=== PATIENT | female | born 1970 | race Caucasian/White ===

== ENCOUNTER 2021-02-25 16:39 | Outpatient (CLI) | payer OTHER, SELFPAY ==
[2021-02-25 17:41] LABS: Absolute Lymphocyte Count 1.81 X10^3/uL (0.83-4.51); Absolute Neutrophil Count 4.6 X10^3/uL (2.0-7.7); Basophil# 0.04 X10^3/uL; Basophil% 0.6 % (0-1); Eosinophil# 0.05 X10^3/uL; Eosinophils% 0.7 % (0-5); Hematocrit 39.9 % (37-47); Lymphocyte # 1.81 X10^3/ul (0.83-4.51); Lymphocyte % 25.6 % (19-41); Mean Corp Hgb Conc 32.6 g/dL (32-36); Mean Corpuscular Hgb 31.2 pg (27.0-32.0); Mean Corpuscular Volume 95.7 fL (81-99); Mean Platelet Vol. 10.3 fl (6.2-12.0); Monocyte# 0.58 X10^3/uL; Monocyte% 8.2 % (0-10); NRBC Flagged by Analyzer 0 % (0-5); Neutrophil # 4.57 X10^3/uL (2.7-7.7); Neutrophil % 64.6 % (47-70); Platelet Count 291 K/mm3 (150-450); RBC Distribution Width CV 14.7 % (11.6-14.6); Red Blood Count 4.17 M/mm3 (4.2-5.4); White Blood Count 7.1 K/mm3 (4.4-11.0)
[2021-02-25 18:15] LABS: ALB/GLOB Ratio 0.8 RATIO (0.9-2.4); AST(SGOT) 20 U/L (15-37); Alanine Aminotransfer ALT/SGPT 19 U/L (13-56); Albumin, Serum 3.2 g/dL (3.2-5.0); Alkaline Phosphatase 73 U/L (45-117); Anion Gap 7 (5-15); BUN 16 mg/dL (7-18); BUN/Creat Ratio 25.7 RATIO (10-20); Chloride 105 mmol/L (98-107); Cholesterol 191 mg/dL (200); Creatinine, Serum 0.62 mg/dL (0.55-1.02); EST Glomerular Filtration Rate 109 mL/min (>60); Est Glom Filt Rate - Afr Amer 131 mL/min (>60); Globulin 3.8 g/dL (2.2-4.2); Glucose 95 mg/dL (74-106); High Density Lipoprotein 103 mg/dL; Magnesium 2.2 mg/dL (1.6-2.6); Phosphorus 2.7 mg/dL (2.5-4.9); Potassium 3.2 mmol/L (3.5-5.1); Sodium Level 140 mmol/L (136-145); Triglycerides 61 mg/dL; Very Low Density Lipoprotein 12 mg/dL (5-40)
[2021-02-25 18:17] LABS: Microalbumin,Random Urine < 5.0 mg/L (NO RANGE EST.)
[2021-02-25 18:23] LABS: Vitamin B12 822 pg/mL (211-911); Vitamin D,25 Hydroxy 29.6 ng/mL
[2021-03-01 17:09] LABS: Vitamin B1, Thiamine 170.3 nmol/L (66.5-200.0)
== END 2021-02-25 23:59 | disposition short-term general hospital (02) ==
LOC: MFPLAB 16:42
PROVIDERS: PCP Family Medicine; Referring Provider Family Medicine; Visit Provider Family Medicine
DX: I10 Essential (primary) hypertension (principal); Z98.84 Bariatric surgery status
CPT/HCPCS: 36415; 80053; 80061; 82043; 82306; 82570; 82607; 83735; 84100; 84425; 85025

== ENCOUNTER 2021-04-21 07:02 | Outpatient (CLI) | payer OTHER, SELFPAY ==
--- NOTE | 2021-04-21 16:22 | BI_ITS ---
MAMMOGRAPHY - BILATERAL SCREENING REASON FOR EXAM: Female, 50 years old. Routine annual screening examination. PERTINENT HISTORY: Non-contributory. Bilateral breast implants. TECHNIQUE: Digital bilateral breast adriel (3D mammographic acquisition) in the CC and MLO projections. 2-D mediolateral oblique (MLO) and craniocaudad (CC) views of both breasts were obtained. CAD: Full Field Digital Mammography with Computer Added Detection was performed. COMPARISON: Comparison is made with prior outside examination dated 05/30/2013. FINDINGS: Breast Composition: The breasts are almost entirely fatty. There are no dominant masses or suspicious calcifications. Irregular contour of the anterior aspect of the right breast implant. This is unchanged as compared to prior study. No other significant abnormalities are identified. There has been no significant change since the prior study. BI/SCRN MAMM (CAD)W/ADRIEL BILAT IMPRESSION: Stable bilateral screening mammogram. Yearly follow-up mammogram recommended. (A) ASSESSMENT CATEGORY: BIRADS Category 2: Benign. A letter regarding these results will be sent to the patient by the facility within 30 days. Approximately 10% of breast cancers are not detected by mammography. A normal mammogram should not delay biopsy of a clinically suspicious abnormality. [id number] Electronically Signed: Haseeb Gallego MD at 9:03 EST ,
== END 2021-04-21 23:59 | disposition home or self-care (01) ==
LOC: OPBI 04-22 07:10
PROVIDERS: PCP Family Medicine; Visit Provider Family Medicine
DX: Z12.31 Encounter for screening mammogram for malignant neoplasm of breast (principal)
CPT/HCPCS: 77063; 77067

== ENCOUNTER → 2022-09-11 | Outpatient (CLI) | payer OTHER, SELFPAY ==
[2022-09-11 17:48] LABS: Absolute Lymphocyte Count 1.21 X10^3/uL (0.83-4.51); Absolute Neutrophil Count 3.1 X10^3/uL (2.0-7.7); Basophil# 0.04 X10^3/uL; Basophil% 0.8 % (0-1); Eosinophil# 0.07 X10^3/uL; Eosinophils% 1.4 % (0-5); Hematocrit 45.4 % (37-47); Hemoglobin 15.3 g/dL (12.0-15.0); Lymphocyte # 1.21 X10^3/ul (0.83-4.51); Lymphocyte % 24.8 % (19-41); Mean Corp Hgb Conc 33.7 g/dL (32-36); Mean Corpuscular Hgb 35.7 pg (27.0-32.0); Mean Corpuscular Volume 106.1 fL (81-99); Mean Platelet Vol. 10.4 fl (6.2-12.0); Monocyte# 0.47 X10^3/uL; Monocyte% 9.6 % (0-10); NRBC Flagged by Analyzer 0 % (0-5); Neutrophil # 3.07 X10^3/uL (2.7-7.7); Platelet Count 194 K/mm3 (150-450); RBC Distribution Width CV 13.1 % (11.6-14.6); RBC Distribution Width SD 50.9 fl (35.1-43.9); Red Blood Count 4.28 M/mm3 (4.2-5.4); White Blood Count 4.9 K/mm3 (4.4-11.0)
[2022-09-11 18:19] LABS: Vitamin B12 680 pg/mL (211-911); Vitamin D,25 Hydroxy 39.5 ng/mL
[2022-09-11 18:34] LABS: ALB/GLOB Ratio 0.8 RATIO (0.9-2.4); AST(SGOT) 59 U/L (15-37); Alanine Aminotransfer ALT/SGPT 54 U/L (13-56); Albumin, Serum 3.4 g/dL (3.2-5.0); Alkaline Phosphatase 98 U/L (45-117); Anion Gap 7 (5-15); BUN 16 mg/dL (7-18); BUN/Creat Ratio 20.1 RATIO (10-20); Calcium,Total 9.5 mg/dL (8.5-10.1); Chloride 102 mmol/L (98-107); Cholesterol 243 mg/dL (200); EST Glomerular Filtration Rate 81 mL/min (>60); Est Glom Filt Rate - Afr Amer 98 mL/min (>60); Globulin 4.2 g/dL (2.2-4.2); Glucose 98 mg/dL (74-106); High Density Lipoprotein 144 mg/dL; Magnesium 2.1 mg/dL (1.6-2.6); Phosphorus 3.5 mg/dL (2.5-4.9); Potassium 3.3 mmol/L (3.5-5.1); Protein, Total 7.6 g/dL (6.4-8.2); Sodium Level 136 mmol/L (136-145); Triglycerides 117 mg/dL; Very Low Density Lipoprotein 23 mg/dL (5-40)
[2022-09-14 20:08] LABS: Vitamin B1, Thiamine 169.8 nmol/L (66.5-200.0)
== END | disposition home or self-care (01) ==
LOC: MFPLAB 16:19
PROVIDERS: PCP Family Medicine; Visit Provider Family Medicine
DX: Z98.84 Bariatric surgery status (principal); I10 Essential (primary) hypertension
CPT/HCPCS: 36415; 80053; 80061; 82306; 82607; 83735; 84100; 84425; 85025

== ENCOUNTER → 2023-02-09 | Outpatient (CLI) | payer OTHER, SELFPAY ==
--- NOTE | 2023-02-09 15:17 | BI_ITS ---
MAMMOGRAPHY - BILATERAL SCREENING 3-D TOMOSYNTHESIS REASON FOR EXAM: Female, 52 years old. Implants PERTINENT HISTORY: No significant family history. TECHNIQUE: 2-D mammograms and 3-D Tomosynthesis of the breast (s) were performed. Implant displaced views also performed. CAD was performed. COMPARISON: 04/21/2021 FINDINGS: The breast composition is almost entirely fat. Scattered benign calcifications are seen. No dense spiculated masses or suspicious microcalcifications are identified. No architectural distortion is identified. There is no skin thickening or retraction. Irregular contour of the right breast implant again noted. Stable appearance of implants otherwise There has been no significant change since the prior study. 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 Routine yearly mammograms recommended. ASSESSMENT CATEGORY: BIRADS Category 1: Negative. A letter regarding these results will be sent to the patient by the facility within 30 days. FOLLOW UP RECOMMENDATION: Yearly follow up mammogram recommended. (A) Approximately 10% of breast cancers are not detected by mammography. A normal mammogram should not delay biopsy of a clinically suspicious abnormality. Electronically Signed: Cuong Armando MD at 17:14 EST ,
== END | disposition home or self-care (01) ==
LOC: OPBI 15:16
PROVIDERS: PCP Family Medicine; Referring Provider Family Medicine; Visit Provider Family Medicine
DX: Z12.31 Encounter for screening mammogram for malignant neoplasm of breast (principal)
CPT/HCPCS: 77063; 77067

== ENCOUNTER → 2023-08-29 | Outpatient (CLI) | payer OTHER, SELFPAY ==
[2023-08-29 15:17] LABS: Absolute Lymphocyte Count 1.03 X10^3/uL (0.83-4.51); Absolute Neutrophil Count 2.5 X10^3/uL (2.0-7.7); Basophil# 0.05 X10^3/uL; Basophil% 1.2 % (0-1); Eosinophil# 0.01 X10^3/uL; Eosinophils% 0.2 % (0-5); Hemoglobin 13.3 g/dL (12.0-15.0); Lymphocyte # 1.03 X10^3/ul (0.83-4.51); Lymphocyte % 25.3 % (19-41); Mean Corp Hgb Conc 34.1 g/dL (32-36); Mean Corpuscular Volume 102.6 fL (81-99); Mean Platelet Vol. 9.5 fl (6.2-12.0); Monocyte# 0.47 X10^3/uL; Monocyte% 11.5 % (0-10); NRBC Flagged by Analyzer 0 % (0-5); Neutrophil % 61.6 % (47-70); Platelet Count 222 K/mm3 (150-450); RBC Distribution Width CV 13.4 % (11.6-14.6); RBC Distribution Width SD 50.7 fl (35.1-43.9); White Blood Count 4.1 K/mm3 (4.4-11.0)
[2023-08-29 15:34] LABS: Protein, Urine (Random) 39.7 mg/dL (<11.9); Protein:Creat Ratio 191 mg/g CRE (0-200)
[2023-08-29 15:46] LABS: Vitamin B12 438 pg/mL (211-911); Vitamin D,25 Hydroxy 35.9 ng/mL
[2023-08-29 16:19] LABS: AST(SGOT) 94 U/L (15-37); Alanine Aminotransfer ALT/SGPT 48 U/L (13-56); Albumin, Serum 3.8 g/dL (3.2-5.0); Alkaline Phosphatase 93 U/L (45-117); Anion Gap 11 (5-15); BUN 11 mg/dL (7-18); BUN/Creat Ratio 10.5 RATIO (10-20); Calcium,Total 9.8 mg/dL (8.5-10.1); Chloride 96 mmol/L (98-107); Cholesterol 282 mg/dL (200); Creatinine, Serum 1.05 mg/dL (0.55-1.02); EST Glomerular Filtration Rate 59 mL/min (>60); Est Glom Filt Rate - Afr Amer 71 mL/min (>60); Glucose 96 mg/dL (74-106); High Density Lipoprotein 200 mg/dL; Magnesium 1.9 mg/dL (1.6-2.6); Phosphorus 2.4 mg/dL (2.5-4.9); Potassium 3.1 mmol/L (3.5-5.1); Protein, Total 7.8 g/dL (6.4-8.2); Sodium Level 136 mmol/L (136-145); Triglycerides 127 mg/dL; Very Low Density Lipoprotein 25 mg/dL (5-40)
[2023-09-03 03:06] LABS: Vitamin B1, Thiamine 103.5 nmol/L (66.5-200.0)
== END | disposition home or self-care (01) ==
PROVIDERS: PCP Family Medicine
DX: Z98.84 Bariatric surgery status (principal); I10 Essential (primary) hypertension; F17.210 Nicotine dependence, cigarettes, uncomplicated
CPT/HCPCS: 36415; 80053; 80061; 82306; 82570; 82607; 83735; 84100; 84156; 84425; 85025

== ENCOUNTER 2023-11-20 16:03 | Outpatient (RCR) | payer OTHER, SELFPAY ==
--- NOTE | 2023-11-20 17:05 | HP.PTEVAL_ITS ---
Patient's Visit Information Visit Information Visit Information: JIL AUSTIN is a 53 year old F referred to Physical Therapy by JOSE ELIAS Wallace with a diagnosis of Muscle strain. Date of Evaluation: 11/20/23 Physical Therapist: Kemar Pham, DPT, OCS, CSCS Visit Plan Plan: Shown L thoracic rotation as HEP 15x 4x/day, also offered POC for aquatic therapy for back ROM, strength adn balance but pt wishes to to on her own as member and does not wish for instruction. Will join and do it herself. Subjective Subjective: L foot surgery in mid August. Also runs low on iron and was not moving around much due to that and boot on L foot. Was dizzy and passing out and now iron has taken care of all of that. Pulled a muscle in mid back in one of her falls with iron low and now radiates L thoracic area. That was approx 6 weeks ago. it is improving. Pain is L thoracic and to the lateral rib cage. Went to family doctor and diagnosed with pulled muscle L side. Fell due to meds so did not take. Continued pain for 2 weeks and went to oro doctor who did x rays and nothing broken. Gave a course of steroids which helped it to ease up. Now feels more stiff than anything. pain this week 2/10 and used to be a 10/10. Very tired with multiple errands today. Sleep is OK now steroid helped 92% Basic ADLs: all i Retired. Hobbies: 2 dogs to play and has been doing that . Pain mid back: Pain Intensity (Out of 10): 0 Pain Intensity Range: 0 and 2 Comment: used to be a 10 Objective Objective: WBAT in boot L LE from surgery. Walking I in boot without other gait deviations. Trasnfers bed and chair I, steps showing weakness in hips ascending and descending and requires rail but I. LB AROM ex abd flexion full and painfree. SB L and R no pain, rotation L hurts slight L scap and R is no painful. No tenderness in paraspinals or scap mm. reflexes 2/3 B Patella Sensation LE WNL to gross light touch. strength hips abd and ext 3+ and flexion 3+ with contralateral rotation. Instabi lity in trunk with hip testing. knees 4/5 B ext and flexion. R ankle 4+/5 Mild SOBafter ambualtion of 400 feet and 5 stairs. Balance/Special Test Scores Functional Gait Assessment Score: 29 % Disability: 3.3400 Lower Extremity Functional Score: 40 Rehabilitation Potential Physical Therapy Diagnosis: L scap pain and weakness in trunk limiting comfortable funciton Rehabilitation Potential: Fair Anticipated Interventions Text: Thank you for the opportunity to evaluate your patient. For Medicare and Medicare HMO plans, please review the plan of care and approve it. It will need to be FAXED BACK to us at [phone] for Medicare purposes. For Medicare only, by signing this I certify the plan of care. Please let me know if there are questions or concerns regarding this plan of care. Physician Signature: Date:
== END 2023-11-20 19:00 | disposition home or self-care (01) ==
LOC: PT 16:03
PROVIDERS: PCP Family Medicine; Referring Provider Student in an Organized Health Care Education/Training Program; Visit Provider Student in an Organized Health Care Education/Training Program
DX: T14.8XXD Other injury of unspecified body region, subsequent encounter (principal)
CPT/HCPCS: 97161

== ENCOUNTER 2024-08-21 15:25 | Emergency (ER) | payer MEDICAID, SELFPAY ==
[2024-08-21] VITALS (7 sets, daily range): BP systolic 99–131; BP diastolic 69–98; PULSE 86–133; RESP 16–24; TEMP 36.4; O2SAT 92–100; BMI 36.2
[2024-08-21 16:47] LABS: Hematocrit 33.6 % (37-47); Hemoglobin 11.8 g/dL (12.0-15.0); Immature Granulocytes Count 0.040 X10^3/uL (0.0-0.0); Mean Corp Hgb Conc 35.1 g/dL (32-36); Mean Corpuscular Volume 103.4 fL (81-99); Mean Platelet Vol. 9.5 fl (6.2-12.0); NRBC Flagged by Analyzer 0 % (0-5); Platelet Count 335 K/mm3 (150-450); RBC Distribution Width CV 12.8 % (11.6-14.6); RBC Distribution Width SD 48.5 fl (35.1-43.9); Red Blood Count 3.25 M/mm3 (4.2-5.4); White Blood Count 7.1 K/mm3 (4.4-11.0)
[2024-08-21 16:48] LABS: AST(SGOT) 37 U/L (<=31); Alanine Aminotransfer ALT/SGPT 18 U/L (<=34); Albumin, Serum 4.1 g/dL (3.5-5.0); Alkaline Phosphatase 80 U/L (35-104); Anion Gap 16 (5-15); BUN 15 mg/dL (4-19); BUN/Creat Ratio 13.8 RATIO (10-20); Calcium,Total 9.9 mg/dL (7.6-11.0); Carbon Dioxide 30.9 mmol/L (21.0-32.0); Chloride 80 mmol/L (98-108); Estimated Creatinine Clearance 67.38 ml/min (50-250); Globulin 3.3 g/dL (2.2-4.2); Glucose 110 mg/dL (70-99); Potassium 2.6 mmol/L (3.3-5.1)
[2024-08-21] MEDS: Potassium Chloride Oral Tablet 20 MEQ 40 MEQ PO (17:32)
[2024-08-21] MEDS: Potassium Chloride 10mEq/100mL 10 MEQ/100 ML IV.SOLN. 100 MEQ IV BOLUS ×2 (18:10→20:50)
[2024-08-21] MEDS: 0.9% Normal Saline (1000mL) 1,000 ML 999 ML IV (19:07)
== END 2024-08-21 23:30 | disposition home or self-care (01) ==
PROVIDERS: Emergency Provider Emergency Medicine; PCP Nurse Practitioner Family; Visit Provider Emergency Medicine
DX: S82.831A Other fracture of upper and lower end of right fibula, initial encounter for closed fracture (principal); E87.1 Hypo-osmolality and hyponatremia; I10 Essential (primary) hypertension; E87.6 Hypokalemia; D64.9 Anemia, unspecified; Z87.891 Personal history of nicotine dependence; W19.XXXA Unspecified fall, initial encounter; Z79.899 Other long term (current) drug therapy
CPT/HCPCS: 71046; 73564; 73610; 80053; 85025; 86850; 86900; 86901; 93005; 96365; 96366; 99285; A4216